=== PATIENT | female | born 1945 | race Caucasian/White ===

== ENCOUNTER 2017-07-23 10:38 | Emergency (ER) | payer OTHER ==
[2017-07-23 10:57] VITALS: BMI 34.0
[2017-07-23] MEDS ORDERED: KETOROLAC TROMETHAMINE 30 MG/1 ML VIAL IVPUSH ONE (16:11)
[2017-07-23] MEDS ORDERED: SODIUM CHLORIDE 0.9% 1000 ML INFUS.BAG IV ONE (16:11)
[2017-07-23] MEDS ORDERED: morphine CARPU-JECT 4 MG/1 ML DISP.SYRIN IVPUSH ONE (16:29)
--- NOTE | 2017-07-23 16:42 | PDOC ---
History of Present Illness - General Chief Complaint: Hematuria Stated Complaint: ABD PAIN, BLEEDING (PCP SENT) Time Seen by Provider: 07/23/17 16:10 History Source: Patient, Family Exam Limitations: Language Barrier (Daughter at bedside) - History of Present Illness Initial Comments: 07/23/17 16:31 The patient is a 72F with a PMH of HTN who presents to the ED with 5 days of hematuria with back pain. The patient is with her daughter who is providing most of the history. The patient states that 5 days ago she had back/flank pain (b/l) which radiates diffusely to her abdomen. The hematuria occured at the same time that the back/abdominal pain started. THe patient states that she has never had this pain before. She denies any history of renal stones. She states that she has had multiple abdominal surgeries. LBM is last night. Past History - Past Medical History Allergies/Adverse Reactions: Allergies Allergy/AdvReac Type Severity Reaction Status Date / Time No Known Allergies Allergy Verified 07/23/17 10:49 COPD: No HTN: Yes Psychiatric Problems: Yes (DEPRESSION) - Suicide/Smoking/Psychosocial Hx Smoking History: Never smoked Hx Alcohol Use: No Drug/Substance Use Hx: No Review of Systems - Review of Systems Able to Perform ROS?: Yes Comments:: 07/23/17 16:42 GENERAL/CONSTITUTIONAL: No fever or chills. No weakness. HEAD, EYES, EARS, NOSE AND THROAT: No change in vision. No ear pain or discharge. No sore throat. GASTROINTESTINAL: Positive for diffuse abdominal pain. No nausea, vomiting, diarrhea, or constipation. GENITOURINARY: Positive for hematuria and flank pain. No dysuria, frequency, or change in urination. CARDIOVASCULAR: No chest pain, palpitations, or lightheadedness. RESPIRATORY: No cough, wheezing, shortness of breath, or hemoptysis. MUSCULOSKELETAL: No joint or muscle swelling or pain. No neck or back pain. SKIN: No rash or lesions. NEUROLOGIC: No headache, numbness, tingling, weakness, loss of consciousness, or change in strength/sensation. ENDOCRINE: No increased thirst. No abnormal weight change. HEMATOLOGIC/LYMPHATIC: No anemia, easy bleeding, or history of blood clots. ALLERGIC/IMMUNOLOGIC: No hives or skin allergy. Is the patient limited [place] proficient: Yes *Physical Exam - Vital Signs Last Vital Signs Temp Pulse Resp BP Pulse Ox 97.6 F 66 20 155/74 99 07/23/17 10:50 07/23/17 10:50 07/23/17 10:50 07/23/17 10:50 07/23/17 10:50 - Physical Exam Comments: 07/23/17 16:43 GENERAL: Well developed, well nourished. Awake and alert. No acute distress. HEENT: Normocephalic, atraumatic. NECK: Supple. Full ROM. CARDIOVASCULAR: Regular rate and rhythm. No murmurs, rubs, or gallops. Distal pulses are 2+ and symmetric. PULMONARY: No evidence of respiratory distress. Lungs clear to auscultation bilaterally. No wheezing, rales or rhonchi. ABDOMINAL: Soft. Mildly tender to deep palpation over suprapubic abdomen. Non- distended. No rebound or guarding. No organomegaly. Normoactive bowel sounds. GENITOURINARY: CVA tenderness bilaterally. MUSCULOSKELETAL: Normal range of motion at all joints. TTP over lumbar paraspinal region. EXTREMITIES: No cyanosis. No clubbing. No edema. SKIN: Warm and dry. Normal capillary refill. No rashes. No jaundice. NEUROLOGICAL: Alert, awake, appropriate. Normal speech. Gait is normal without ataxia. PSYCHIATRIC: Cooperative. Good eye contact. Appropriate mood and affect. ED Treatment Course - LABORATORY CBC & Chemistry Diagram: 07/23/17 17:10 07/23/17 17:10 - RADIOLOGY Radiology Studies Ordered: Category Date Time Status ABDOMEN & PELVIS CT WITH CONTR [CT] Stat CT Scan 07/23/17 16:27 Ordered Medical Decision Making - Medical Decision Making 07/23/17 16:44 The patient is a 72F with a PMH of HTN who presents to the ED with complaints of back pain, abdominal pain, and hematuria x 5 days. She has no hx of stones but I am concerned for a nephrolithiasis. However, due to the vague story, I am concerned for other abdominal/ pathology. I will order labs and imaging and will reassess the patient when they return. 07/23/17 17:53 UA significant for 3+ blood. Otherwise negative. CBC negative. CMP pending. Imaging pending. 07/23/17 20:51 CT shows [id number] renal calculi in the right mid pelvis with mild hydrouteronephrosis. I have discussed these results with the patient and her daughter and they agree for follow up with a urologist, and they are requesting a urologist through [facility]. I have put in the referral and will instruct the patient to take NSAID's as needed for pain. *DC/Admit/Observation/Transfer Diagnosis at time of Disposition: Nephrolithiasis - Discharge Dispostion Disposition: HOME Condition at time of disposition: Improved Admit: No - Referrals Referrals: STAFF,NOT ON [Primary Care Provider] - John Eagle MD [Staff Physician] - - Patient Instructions Printed Discharge Instructions: Kidney Stones -- Adult Additional Instructions: Please return to the ER if symptoms persist, worsen, or new symptoms arise. Please follow up with your primary care physician in 2-3 days. Please follow up with Dr. Eagle, a urologist. Please return to the ER if you have any signs or symptoms of chest pain, shortness of breath, uncontrollable fever, chills, nausea, vomiting, numbness, tingling, or weakness in any part of your body, changes in vision, or slurred speech. - Post Discharge Activity
--- NOTE | 2017-07-23 16:44 | PDOC ---
Attending Attestation - Resident Resident Name: Quentin Harrison - ED Attending Attestation I have performed the following: I have examined & evaluated the patient, The case was reviewed & discussed with the resident, I agree w/resident's findings & plan, Exceptions are as noted - HPI HPI: 07/23/17 16:42 72 yo female has had intermittent hematura associated with abd and back pain fir the past 4-5 days -pt referred to ER by her primary physician in the [facility],cholecystitis,cataract surgery - Physicial Exam PE: 07/23/17 16:56 Well-nourished, well-developed 72-year-old female presents with a history of 4- 5 days of hematuria, abdominal and back pain. She was admitted by her PCP for further evaluation. Past surgical history includes total hysterectomy for fibroid bleeding, cholecystectomy, cataracts past medical history hypertension 07/23/17 16:59 PHYSICAL EXAM HEAD nontraumatic EYES mario eomi NECK supple LUNGS cta b/l ABD no rebound,no guarding, soft FLANK did not appreciate any significant cva tenderness BACK pt has low back pain b/l EXTREMITY no deformity,no erythema,no edema NEURO axox3,ambulatory - Medical Decision Making 07/23/17 17:03 concern for nephrolithiasis, hemorrhagic cystitis, ? bladder neoplasm labs pending/ct scan /IVF 07/23/17 20:51 CT SCAN REVEALS NEPHROLITHIASIS w mild hydro, +kidney stone, UA +3 blood,no uti pt has no fever,no vomiting,labs unremarkable pt and her daughter want to follow up w urology as outpt
[2017-07-23] MEDS ORDERED: KETOROLAC TROMETHAMINE 30 MG/1 ML VIAL ONE (17:08)
[2017-07-23] MEDS ORDERED: morphine CARPU-JECT 8 MG/1 ML DISP.SYRIN ONE (17:11)
[2017-07-23 17:29] LABS: EOSINOPHIL 1.9 % (0-4.5); MCH 26.8 pg (25.7-33.7); MCHC 33.3 g/dl (32.0-36.0); MEAN CELL VOLUME 80.5 fl (80-96); MEAN PLT VOLUME 7.9 fl (7.5-11.1); NEUTROPHILS 57.1 % (42.8-82.8); PLATELET COUNT 329 K/MM3 (134-434); WHITE BLOOD COUNT 6.2 K/mm3 (4.0-10.0)
[2017-07-23 17:33] LABS: URINE APPEARANCE CLEAR; URINE BILIRUBIN NEGATIVE (NEGATIVE); URINE BLOOD 3+ (NEGATIVE); URINE COLOR COLORLESS; URINE GLUCOSE (UA) NEGATIVE (NEGATIVE); URINE KETONE NEGATIVE (NEGATIVE); URINE NITRITE NEGATIVE (NEGATIVE); URINE PROTEIN NEGATIVE (NEGATIVE); URINE UROBILINOGEN NEGATIVE mg/dL (0.2-1.0)
[2017-07-23 18:06] LABS: ALBUMIN 3.8 g/dl (3.4-5.0); ANION GAP 8 (8-16); BILIRUBIN,TOTAL 0.4 mg/dL (0.2-1.0); CO2 28 mmol/L (21-32); CREATININE 0.6 mg/dL (0.55-1.02); GLUCOSE,RANDOM 95 mg/dL (74-106); SGOT/AST 18 U/L (15-37); SGPT/ALT 16 U/L (12-78); TOT PROT 7.2 g/dl (6.4-8.2)
[2017-07-23 18:07] LABS: ALK PHOS 82 U/L (45-117)
[2017-07-23 19:14] LABS: URINE BACTERIA RARE /hpf (NONE SEEN); URINE RBC 2 /hpf (0-3); URINE WBC 1 /hpf (3-5)
[2017-07-23 20:55] LABS: URINE LEUK ESTERASE TRACE (NEGATIVE)
[2017-07-23 22:57] VITALS: BP 140/70; PULSE 70; TEMP 97.2
== END 2017-07-23 22:16 | disposition home or self-care (01) ==
LOC: JER 10:38
PROC: 3E033NZ Introduction of Analgesics, Hypnotics, Sedatives into Peripheral Vein, Percutaneous Approach (ICD-10-PCS; principal; 2017-07-23)
PROC: 3E0333Z Introduction of Anti-inflammatory into Peripheral Vein, Percutaneous Approach (ICD-10-PCS; 2017-07-23)
DX: N20.0 Calculus of kidney (principal); I10 Essential (primary) hypertension
CPT/HCPCS: 36415; 74177-TC; 80053; 81003; 81015; 83690; 85025; 87086; 96374; 96375; 99283-25; Q9967